=== PATIENT | male | born 2005 ===

== ENCOUNTER 2025-03-27 12:06 | Outpatient (AMB) | payer BC, SELFPAY ==
--- OUTSIDE RECORDS SUMMARY | 2020-11-04 17:58 | XMS_ITS | Encounter Summary ---
Author Organization [facility] Address [address] [place] [address] Care Team Providers Care Supply Chain Buyer Name Role Phone Efrem Zaldivar MD Primary Care Provider [phone] Efrem Zaldivar MD Unavailable [phone] Encounter Details Date Type Department Care Team (Late st Contact Info) Description 11/04/2020 5:58 PM EDT Hospital Encounter [facility] [address] [place] [place] [phone] Sharif Rubin MD [address] [place] [id number] Social History Tobacco Use Types Packs/Day Years Used Date Smoking Tobacco: Never Smokeless Tobacco: Never Alcohol Use Standard Drinks/Week Comments Yes 0 (1 standard drink = 0.6 oz pur e alcohol) Once every few months Social Connection and Isolation Panel [NHANES] A nswer Date Recorded In a typical week, how many times do you talk on the phone with family, friends, or neighbors? Patient declined 02/27/2025 Frequency of Social Gatherings with Friends and Family Not on file 02/27/2025 Attends Mandaeism Services Not on file 02/27 Active Member of Clubs or Organizations Not on f ile 02/27/2025 Attends Club or Organization Meetings Not on victor hugo e 02/27/2025 Marital Status Not on file 02/27/2025 AUDIT-C Answer Date Recorded Q1: How often do you have a drink containing alc ohol? Patient declined 02/27/2025 Q2: How many drinks containi ng alcohol do you have on a typical day when you are drinking? 7 to 9 02/27/2025 Frequency of Binge Drinking Not on file 02/02 PHQ-2 Answer Date Recorded PHQ-2 Total Score 1 02/22/2025 Hunger Vital Sign Answer Date Recorded Within the past 12 months, y ou worried that your food would run out before you got the money to buy more. Patient declined Within the past 12 months, t he food you bought just didn't last and you didn't have money to get more. Patient declined PRAPARE - Transportation Answer Date Re corded In the past 12 months, has l ack of transportation kept you from medical appointments or from getting medications? Patient declined 02/27/2025 In the past 12 months, has l ack of transportation kept you from meetings, work, or from getting things needed for daily living? Patient declined 02/27/2025 Housing Stability Vital Sign Answer Jimmie e Recorded In the last 12 months, was t here a time when you were not able to pay the mortgage or rent on time? Patient declined 02/28/20 25 In the past 12 months, how m any times have you moved where you were living? 0 02/27/2025 At any time in the past 12 m [facility], were you homeless or living in a halfway (including now)? Patient declined 02/27/2025 Education Answer Date Recorded What is the highest level of school you have completed or the highest degree you have received? 12th grade 02/27/2025 Sex and Gender Information Value Date Recorded Sex Assigned at Male 09/02/2022 3:29 AM EST Legal Sex Male 4:20 PM EDT Gender Identity Male 09/02/2022 3:29 AM EST Sexual Orientation Heterosexual (straight) 09/02 3:29 AM EST Occupation Industry Job Start Date Job End Date student Not on file Not on file Not on file COVID-19 Exposure Response Date Recorded In the last 10 days, have yo u been in contact with someone who was confirmed or suspected to have Coronavirus/COVID-19? No / Unsure 09/02/2022 1:55 AM EST documented as of this encounter Functional Status * Q1: How often do you have a drink containing alcohol? Answer Date of Assessment Author Patient declined 02/27/2025 2:53 PM EDTia Alonso * Q2: How many drinks containing alcohol do you have on a typical day when you are drinking? Answer Date of Assessment Author 7 to 9 02/22/2025 9:54 AM Jonathan Sherman * Over the past 2 weeks, how often have you been bothered by any of the following problems? Question Answer Date of Assessment Author Patient Health Questionnaire-2 Score 1 02/02 9:53 AM Nakia Sherman * Little interest or pleasure in doing things Answer Date of Assessment Author Several days 02/22/2025 9:53 AM Jonathan Sherman * Feeling down, depressed, or hopeless Answer Date of Assessment Author Not at all 02/22/2025 9:53 AM Jonathan Shermanweb * Question Answer Date of Assessment Author Patient Health Questionnaire-9 Score 1 02/02 9:53 AM EDNakia Alonso * Trouble falling or staying asleep, or sleeping too much Answer Date of Assessment Author Not at all 02/22/2025 9:53 AM EDJonathan Alonsoomeweb * Feeling tired or having little energy Answer Date of Assessment Author Not at all 02/22/2025 9:53 AM EDJonathan Alonsoomeweb * Poor appetite or overeating Answer Date of Assessment Author Not at all 02/22/2025 9:53 AM EDJonathan Alonsoomeweb * Feeling bad about yourself - or that you are a failure or have let yourself or your family down Answer Date of Assessment Author Not at all 02/22/2025 9:53 AM EDJonathan Alonsoomeweb * Trouble concentrating on things, such as reading the newspaper or watching television Answer Date of Assessment Author Not at all 02/22/2025 9:53 AM EDT Jonathan Chakraborty lcomeweb * Moving or speaking so slowly that other people could have noticed? Or the opposite - being so fidgety or restless that you have been moving around a lot more than usual. Answer Date of Assessment Author Not at all 02/22/2025 9:53 AM EDT [facility] * How difficult have these problems made it for you to do your work, take care of things at home, or get along with other people? Answer Date of Assessment Author Not difficult at all 02/22/2025 9:53 AM EDT Kia Hardinweb * Over the last 2 weeks, how often have you been bothered by any of the following problems? Question Answer Date of Assessment Author IQRA-7 Total Score 0 02/22/2025 9:53 AM EDT Brenda Chakrabortycomeweb * Feeling nervous, anxious, or on edge Answer Date of Assessment Author 0 02/22/2025 9:53 AM EDT [facility] * Not being able to stop or control worrying Answer Date of Assessment Author 0 02/22/2025 9:53 AM EDT [facility] * Worrying too much about different things Answer Date of Assessment Author 0 02/22/2025 9:53 AM EDT [facility] * Trouble relaxing Answer Date of Assessment Author 0 02/22/2025 9:53 AM EDT [facility] * Being so restless that it is hard to sit still Answer Date of Assessment Author 0 02/22/2025 9:53 AM EDT [facility] * Becoming easily annoyed or irritable Answer Date of Assessment Author 0 02/22/2025 9:53 AM EDT [facility] * Feeling afraid as if something awful might happen Answer Date of Assessment Author 0 02/22/2025 9:53 AM EDT [facility] * Question Answer Date of Assessment Author Thoughts that you would be better off or hurting yourself in some way Not at all 02/22/2025 9:53 AM EDT Rosie Tena MA documented as of this encounter Plan of Treatment Not on file documented as of this encounter Procedures Procedure Name Priority Date/Time Associated Diagnosis Comments XR FINGER (5TH) 2+ VIEWS-LEFT STAT 11/04/2020 6:11 PM EDT Finger pain, left documented in this encounter Results * XR Finger (5th) 2+ views-Left (11/04/2020 6:11 PM EDT) Anatomical Region Laterality Modality Hand Left Computed Radiogr aphy 11/04/2020 6:14 PM EDT Impressions 11/04/2020 6:16 PM EDT Impression: Angulated fracture of the fifth proximal phalanx. Narrative 11/04/2020 6:16 PM EDT Technique: 3 views obtained of the fifth digit Comparison: No relevant prior Findings: There is a comminuted fracture at the base of the fifth proximal phalanx with slight dorsal angulation of the distal fracture fragment. Fracture line closely approaches although is not definitively seen extending to the joint space. No dislocation. No focal soft tissue abnormality. Procedure Note Xochitl Ortiz MD - 11/04/2020 Technique: 3 views obtained of the fifth digit Comparison: No relevant prior Findings: There is a comminuted fracture at the base of the fifth proximal phalanxwith slight dorsal angulation of the distal fracture fragment. Fractureline closely approaches although is not definitively seen extending to thejoint space. No dislocation. No focal soft tissue abnormality. IMPRESSION: Impression: Angulated fracture of the fifth proximal phalanx. Trevor Zelaya PA-C IMTeto DIAGNOSTIC IMAGING ORDERABLES Final Result documented in this encounter Visit Diagnoses Not on filedocumented in this encounter Additional Health Concerns Infection Onset Date Last Indicated Resolved Time R/O Respiratory Disease 06/25/2024 06/25/202406/04 11:32 PM EST documented as of this encounter Care Teams Supply Chain Buyer Relationship Specialty Start Date End Date Efrem Zaldivar MD PCP - General Internal Medicine 07/25/18 10/02/24 Efrem Zaldivar MD [address] [place] [address] [address] [place] [address] PCP - [place] [employer] Attributed 09/01/20 07/03/22 documented as of this encounter
--- NOTE | 2025-03-27 12:11 | MHC.OFFWIV ---
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 Previously tested for std's which resulted negative, would like them repeated. Allergies No Known Allergies Allergy (Verified 03/27/25 12:15) Do you need a note to return to daycare/school/sports/work: Yes HPI HPI Comments History of Present Illness Details History - The patient is a 19-year-old male presenting with persistent pruritus localized to the tip of his penis. - The pruritus began approximately a month and a half ago, coinciding with the use of chemicals at work. - [place] and then this began. - The patient reports no associated rash, discharge, or lesions. - Previous interventions from his PCP include the use of topical steroid and antifungal creams, which provided minimal relief. - The patient has attempted to change soaps and laundry detergents without improvement. - No recent sexual partners or concerns about sexually transmitted infections were reported. - The patient engages in regular physical activity, including baseball, and wears compression underwear. - There is a history of exposure to strong adhesives without protective gloves, which may have contributed to the symptoms. - He denies penile discharge or pain, rashes in the groin, testicular pain, abd pain, pelvic pain, dysuria or hematuria. Physical Exam General: Cooperative, healthy appearing, comfortable, no acute distress and well developed Orientation: Patient oriented x3 Limitations: No limitations Mouth: normal, moist oral mucosa Neck: Normal visual inspection and Yes full ROM Respiratory: Normal respiratory effort and able to speak in complete sentences. Clear to auscultation bilaterally. No w/r/r noted. Cardiovascular: RRR, no m/r/g noted. Normal S1 and S2 Skin: No rashes or lesions noted. Patient was informed and verbally consented to the use of an ambient scribe for clinic note documentation during this visit Review of Systems Const All systems reviewed & are unremarkable except as noted in HPI and below Physical Exam Vital Signs: Last Vital Signs Temp 98.2 F 03/27/25 12:12 Pulse 65 03/27/25 12:12 BP 132/60 03/27/25 12:12 Pulse Ox 98 03/27/25 12:12 Oxygen Delivery Method Room Air 03/27/25 12:12 BMI result Body Mass Index 25.7 Assessment & Plan Assessment & Plan (1) Itching of penis: Code(s): L29.3 - Anogenital pruritus, unspecified Plan Most likely fungal vs yeast vs STI vs UA UA in the office neg Plan - Recommend a STD panel to rule out sexually transmitted infections- pt declined in the office. - Prescribe a higher dose of antifungal and steroid cream for symptomatic relief. - Suggest trial of oral antihistamines such as loratadine or cetirizine to address potential allergic reactions. - Advise changing to cotton underwear to reduce irritation from compression garments. - Recommend consultation with a sheet metal duct worker supervisor and reproduction production manager for further evaluation. Medications: New cetirizine 10 mg PO DAILY PRN 30 tabs 0RF allergy symptoms clotrimazole-betamethasone 1-0.05 % 1 appl topical BID 45 grams 1RF 4 weeks Coding Level of Care Code Est Pt Level 3 (78610) Diagnoses Itching of penis L29.3
[2025-03-27 12:12] VITALS: BP 132/60; PULSE 65; TEMP 36.8; O2SAT 98; BMI 25.7
--- OUTSIDE RECORDS SUMMARY | 2025-03-27 14:54 | XMS_ITS | Clinical Summary ---
Author Organization [facility] Address [address] [place] [address] Care Team Providers Care Venetian Blind Assembler Name Role Phone Efrem Zaldivar MD Unavailable [phone] Ashleigh Vang APRN Primary Care Prov ider Allergies No known active allergies Medications clotrimazole-be tamethasone (LOTRISONE) creamIndication s:Penile pruritus Apply topically 2 (two) times a day. 15 g Active Active Problems Problem Noted Date Diagnosed Date Seasonal allergic rhinitis due to pollen 015 Encounters Date Type Department Care Team Description 02/27/2025 3:15 PM EDT Office Visit [address] [phone] Juan Campbell PA Penile pruritus (Primary Dx) 02/27/2025 Travel 02/22/2025 10:00 AM EDT Office Visit [address] [phone] Ashleigh Vang APRN Penile pruritus (Primary Dx) 02/22/2025 Travel 02/17/2025 11:05 AM EDT Office Visit [facility] [address] [phone] Angelina Hughes APRN Kopas, Emily J, APRN Itching of penis (Primary Dx) 02/17/2025 Travel from Last 3 Months Immunizations Immunization Administration Dates Next Due Covid-19 MRNA Vaccine - Pfiz er 12+ (Purple Cap) 11/15/2020,10/25/2020 DTaP 09/11/2008 DTaP, Unspecified 01/03/2006, 5,2004,10/15 HPV Nonavalent 03/04/2017 Hep A, 2 Dose 01/03/2006 Hep A, Unspecified 10/13/2006,01/03/2006 Hep B, Unspecified 02/17/2005, 5,2004,08/17 Hepatitis B 02/17/2005,2004,2004 Hib 01/03/2006, 5,2004,10/15 Hib (PRP-OMP) 01/03/2006,2004,2004 Hib (PRP-T) 02/17/2005 IPV 02/17/2005,2004,2004 Influenza, Unspecified 04/26/2016,05/22/2015,05/2013 MMR 09/11/2008,09/17/2005 Meningococcal MCV4O (Menveo) 04/28/2023 Meningococcal MCV4P (Menactra) 03/01/2016 OPV 09/11/2008 Pneumococcal Conjugate 7-Valent 01/04/20 06,02/17/2005,2004,10/15 Pneumococcal Polysaccharide 23-Valent 01/03/2006 TD Preservative Free 08/16/2009 Tdap 03/01/2016 Varicella 09/11/2008,09/17/2005 Family History Medical History Relation Name Comments Hypertension Father No Known Problems Mother Relation Name Status Comments Father Mother Social History Tobacco Use Types Packs/Day Years [...] and Family Not on file 02/27/2025 Attends [employer] Not on file 02/27 Active Member [...] any time in the past 12 m [facility], were you homeless or living in a long-term (including now)? Patient declined 02/27/2025 Education Answer [...] file Not on file Not on file Last Filed Vital Signs Vital Sign Reading Time Taken Comments Blood Pressure 127/77 02/27/2025 2:58 PM EDT Pulse 60 02/27/2025 2:58 PM EDT Temperature 36.3 C (97.4 F) 02/27/2025 2:58 PM EDT Respiratory Rate 18 02/27/2025 2:58 PM EDT Oxygen Saturation 99% 02/27/2025 2:58 PM EDT Inhaled Oxygen Concentration - - Weight 76.3 kg (168 lb 3.2 oz) 02/27/2025 2:58 P M EDT Height 177.8 cm (5' 10 ) 02/27/2025 2:58 PM EDT Body Mass Index 24.13 02/27/2025 2:58 PM EDT Plan of Treatment Health Maintenance Due Date Last Done Comments Hepatitis C Virus Screening 2004 HIV Screening 2017 HPV Vaccines (2 - Male 2-dose series) 09/01/2017 03/04/2017 Influenza Vaccine 02/01/2025 04/26/2016, , 07/14/2012 COVID-19 Vaccine ( season) 2025 11/15/2020, 10/25/2020 Physical 02/15/2026 02/15/2023 DTaP/Tdap/Td Vaccines (7 - Td or Tdap) 03/01/2026 03/01/2016, 08/16/2009, 09/11/2008, Additional history exists Hepatitis B Vaccines Completed 02/17/2005, 02/17/2005, 2004, Additional history exists Hib Vaccines Discontinued 01/03/2006, 09/2005, 02/17/2005, Additional history exists Pneumococcal Vaccine: Pediatric (0-5 Years) and At-Risk Patients (6 to 49 Years) Aged Out 01/03/2006, 01/03/2006, 02/17/2005, Additional history exists No longer eligible based on patient's age to complete this topic Hepatitis A Vaccines Discontinued 10/13/2006, 01/03/2006, 01/03/2006 MMR Vaccines Discontinued 09/11/2008, 09/17/2005 Polio (IPV/OPV) Vaccines Discontinued 009, 02/17/2005, 2004, Additional history exists Varicella Vaccines Discontinued 09/11/2008, 09/17/2005 Influenza Vaccine Discontinued 04/26/2016, , 07/14/2012 Meningococcal Vaccine Discontinued 04/28/2023, 016 Insurance BLUE CROSS OUT OF [facility] BLUE CROSS OUT OF [facility] [id number] [place] [address] - PPO Care Teams Venetian Blind Assembler Relationship Specialty Start Date End Date Efrem Zaldivar MD [address] [facility] [address] [place] [id number] PCP - [place] [employer] Attributed 06/03/24 Ashleigh Vang APRN [address] [facility] [address] [place], [place] [id number] PCP - General Internal Medicine 02/22/25
--- OUTSIDE RECORDS SUMMARY | 2025-03-27 14:54 | XMS_ITS | Encounter Summary ---
Author Organization [facility] Address [address] [place] [address] Care Team Providers Care Skidder Name Role Phone fErem Zaldivar MD Unavailable [phone] Departed Provider, [facility] Generic Primary Care Provider Unavailable Ashleigh Vang APRN Primary Care Prov ider Encounter Details Date Type Department Care Team (Late st Contact Info) Description 11/13/2024 Scanned Document [facility] [address] [place] [phone] Provider, Generic Social History Tobacco Use Types Packs/Day Years Used Date Smoking Tobacco: Never Smokeless Tobacco: Never Alcohol Use Standard Drinks/Week Comments Never 0 (1 standard drink = 0.6 oz pur e alcohol) AUDIT-C Answer Date Recorded Frequency of Alcohol Consumption Never 03/04/2020 Average Number of Drinks Not on file 020 Frequency of Binge Drinking Not on file 07/2019 PHQ-2 Answer Date Recorded PHQ-2 Total Score 0 02/15/2023 Sex and Gender Information Value Date Recorded Sex Assigned at Male 09/02/2022 3:29 AM EST Legal Sex Male 4:20 PM EDT Gender Identity Male 09/02/2022 3:29 AM EST Sexual Orientation Heterosexual (straight) 09/02 3:29 AM EST documented as of this encounter Plan of Treatment Not on file documented as of this encounter Visit Diagnoses Not on filedocumented in this encounter Care Teams Skidder Relationship Specialty Start Date End Date Efrem Zaldivar MD [address] [facility] [address] [place] [address] PCP - [place] [employer] Attributed 06/03/24 Departed Provider, [facility] Generic PCP - General 10/03/24 02/21/25 Ashleigh Vang APRN [address] [facility] [address] [place] [address] PCP - General Internal Medicine 02/22/25 documented as of this encounter
--- OUTSIDE RECORDS SUMMARY | 2025-03-27 14:54 | XMS_ITS | Encounter Summary ---
Author Organization [facility] Address [address] [place] [address] Care Team Providers Care Lever Miller Name Role Phone Efrem Zaldivar MD Primary Care Provider [phone] MailEfrem michelle MD Unavailable [phone] Efrem Zaldivar MD Unavailable [phone] Efrem Zaldivar MD Unavailable [phone] Departed Provider, [facility] Generic Primary Care Provider Unavailable Ashleigh Vang APRN Primary Care Prov ider Encounter Details Date Type Department Care Team (Late st Contact Info) Description 03/06/2020 Scanned Document [facility] Provider, External, [address] [place] [address] Social History Tobacco Use Types Packs/Day Years Used Date Smoking Tobacco: Never Smokeless Tobacco: Never Alcohol Use Standard Drinks/Week Comments Never 0 (1 standard drink = 0.6 oz pur e alcohol) AUDIT-C Answer Date Recorded Frequency of Alcohol Consumption Never 03/04/2020 Average Number of Drinks Not on file 020 Frequency of Binge Drinking Not on file 07/2019 Sex and Gender Information Value Date Recorded [...] documented as of this encounter Care Teams Lever Miller Relationship Specialty Start Date End Date Efrem Zaldivar MD PCP - General Internal Medicine 07/25/18 10/02/24 Efrem Zaldivar MD [address] [address] PCP - [place] Commercial Attributed 09/01/20 07/03/22 Efrem Zaldivar MD [address] [address] PCP - [place] [employer] Attributed 06/03/23 03/03/24 Efrem Zaldivar MD [address] [address] PCP - [place] [employer] Attributed 06/03/24 Departed Provider, [facility] Generic PCP - General 10/03/24 02/21/25 Ashleigh Vang APRN [address] [place] [id number] PCP - General Internal Medicine 02/22/25 documented as of this encounter
--- OUTSIDE RECORDS SUMMARY | 2025-03-27 14:54 | XMS_ITS | Clinical Summary ---
Author Organization [facility] Address [address] [place] [address] Care Team Providers Care Machine Tool Dresser Name Role Phone Angel Beth MD Primary Care Provider Angel Beth MD Unavailable [phone] Medications Amoxicillin (AMOXIL) 500 MG tablet TAKE 1 TABLET 3 times daily 30 tablet 0 12/06/2017 Active Active Problems Problem Noted Date Diagnosed Date Sore throat 12/03/2017 Allergic rhinitis 05/22/2015 Overview (08/07/2023): Impression - 22May2015: most likely cause for headaches and cough. Suggested OTC nasal steroid but mom is hesitant. Could use oral antihistamine like Claritin or Zyrtec Immunizations Immunization Administration Dates Next Due DTaP 09/11/2008, 6,02/17/2005,12/16,2004 HIB (PRP-T) 02/17/2005 HPV9 (Gardasil 9) 03/04/2017 Hep A - 10/13/2006,01/03/2006 Hep B (adult) 02/17/2005,2004,2004 Hib (PRP-OMP) 01/03/2006,2004,2004 IPV 02/17/2005,2004,2004 Influenza (SEASONAL) - 04/26/2016,05/22/2015,05/2013 MMR 09/11/2008,09/17/2005 Meningococcal ACWY (Menactra) 03/01/2016 Meningococcal ACWY (Menveo) 04/28/2023 OPV, Trivalent (Admin Before 10/03/2015) 9 PCV-7 02/17/2005,2004,2004 PPV23 (Pneumovax) 01/03/2006 Tdap 03/01/2016 Varicella 09/11/2008,09/17/2005 Social History Tobacco Use Types Packs/Day Years Used Date Smoking Tobacco: Never Assessed Comments:Smoking Status:No c urrent tobacco use Sex and Gender Information Value Date Recorded Sex Assigned at Not on file Legal Sex Male 5:03 PM EDT Gender Identity Not on file Sexual Orientation Not on file Last Filed Vital Signs Vital Sign Reading Time Taken Comments Blood Pressure 100/58 12/03/2017 11:28 AM EDT LUE/Sitting LUE/Sitting Pulse 60 12/03/2017 11:28 AM EDT Temperature 36.9 C (98.5 F) 12/03/2017 11:28 AM EDT Respiratory Rate 14 12/03/2017 11:2 8 AM EDT Oxygen Saturation 98% 12/03/2017 11: 28 AM EDT Inhaled Oxygen Concentration - - Weight 60.4 kg (133 lb 4 oz) 12/03/2017 11:28 AM EDT Height 168.9 cm (5' 6.5 ) 12/03/2017 11 :28 AM EDT Body Mass Index 21.18 12/03/2017 11:28 AM EDT Plan of Treatment Health Maintenance Due Date Last Done Comments Hepatitis C Screening 2004 HPV Vaccine (2 - Male 2-dose series) 09/01/2017 03/04/2017 COVID-19 Vaccine ( season) 2025 Influenza (#1) 2025 04/26/2016, 05/04, 07/14/2012 DTaP/Tdap/Td (7 - Td or Tdap) 03/01/2026 03/01/2016, 09/11/2008, 01/03/2006, Additional history exists Zoster (Shingrix) (1 of 2) 2054 09/11/2008, Hep B Completed 02/17/2005, 10/02, 2004 Hib Completed 01/03/2006, 02/01, 2004, Additional history exists Pneumococcal Aged Out 01/03/2006, 02/01, 2004, Additional history exists No longer eligible based on patient's age to complete this topic Hep A Completed 10/13/2006, 01/03/2006 MMR Completed 09/11/2008, 09/17/2005 Polio (IPV/OPV) Completed 09/11/2008, 02/01, 2004, Additional history exists Varicella Completed 09/11/2008, 09/17/2005 Physical Discontinued 03/04/2017, 02/02, 02/25/2015, Additional history exists Meningococcal ACWY Completed 04/28/2023, 03/01/2016 Care Teams Machine Tool Dresser Relationship Specialty Start Date End Date Angel Beth MD [address] [place] [address] PCP - General 02/07/23 Angel Beth MD [address] [place] [address] PCP - Backup PCP Family Medicine 08/04/23
--- OUTSIDE RECORDS SUMMARY | 2025-03-27 14:54 | XMS_ITS | Clinical Summary ---
Author Organization [facility] Address [address] [place] [phone] Phone Care Team Providers Care Abstracter Name Role Phone Efrem Zaldivar MD Primary Care Provider [phone] Allergies No known active allergies Social History Tobacco Use Types Packs/Day Years Used Date Smoking Tobacco: Never Assessed Sex and Gender Information Value Date Recorded Sex Assigned at Male 09/06/2024 11:46 PM EST Legal Sex Male 8:38 PM EST Gender Identity Male 09/06/2024 11:46 PM EST Sexual Orientation Straight 09/06/2024 11 :46 PM EST Last Filed Vital Signs Vital Sign Reading Time Taken Comments Blood Pressure 125/64 09/07/2024 1:55 AM EST Pulse 95 09/07/2024 1:55 AM EST Temperature 37.7 C (99.8 F) 09/07/2024 1:55 AM EST Respiratory Rate 19 09/07/2024 1:55 AM EST Oxygen Saturation 98% 09/07/2024 1:55 AM EST Inhaled Oxygen Concentration - - Weight 73.9 kg (163 lb) 09/06/2024 8:47 PM EST Height 175.3 cm (5' 9 ) 09/06/2024 8:47 PM EST Body Mass Index 24.07 09/06/2024 8:47 PM EST Plan of Treatment Health Maintenance Due Date Last Done Comments HPV Vaccines (2 - Male 2-dose series) 09/01/2017 03/04/2017 Meningococcal B Vaccine (1 of 2 - Standard) 2020 Depression Screening 07/04/2024 Annual Well Child Visit (3-21 years old) 09/07/2024 02/15/2023, 03/03/2022, 02/26/2021, Additional history exists HIV Screening 09/07/2024 Hepatitis C Screening 09/07/2024 Social Influencers of Health Screening 09/07/2024 COVID-19 Vaccine (3 - season) 2025 11/15/2020, 10/25/2020 Influenza Vaccine (#1) 2025 6, 05/22/2015, 07/14/2012 DTaP,Tdap,and Td Vaccines (7 - Td or Tdap) 03/01/2026 03/01/2016, 08/16/2009, 09/11/2008, Additional history exists RSV Immunization Adult Patients (1 - 1-dose 75+ series) 2079 Hepatitis B Vaccines Completed 02/17/2005, 2004, 2004, Additional history exists HIB Vaccines Completed 01/03/2006, 02/01, 2004, Additional history exists Pneumococcal Vaccine: Pediatrics (0 to 5 Years) and At-Risk Patients (6 to 49 Years) Completed 01/03/2006, 01/03/2006, 02/17/2005, Additional history exists Hepatitis A Vaccines Completed 10/13/2006, 01/04/20 06 IPV Vaccines Completed 09/11/2008, 02/01, 2004, Additional history exists MMR Vaccines Completed 09/11/2008, 09/17/2005 Varicella Vaccines Completed 09/11/2008, 09/17/2005 Meningococcal ACWY Vaccine Completed 04/28/2023, RSV Immunization Patients Under 20 months Aged Out No longer eligible based on patient's age to complete this topic Insurance [facility] Care Teams Abstracter Relationship Specialty Start Date End Date Efrem Zaldivar MD [address] [place] [id number] PCP - General Family Medicine 09/06/24
--- OUTSIDE RECORDS SUMMARY | 2025-03-27 14:55 | XMS_ITS | Encounter Summary ---
Author Organization [facility] Address [address] [place] [address] Care Team Providers Care Finisher Screwdown Name Role Phone Efrem Zaldivar MD Primary Care Provider [phone] Efrem Zaldivar MD Unavailable [phone] Efrem Zaldivar MD Unavailable [phone] Efrem Zaldivar MD Unavailable [phone] Departed Provider, [facility] Generic Primary Care Provider Unavailable Ashleigh Vang APRN Primary Care Prov ider Encounter Details Date Type Department Care Team (Late st Contact Info) Description 03/16/2021 Scanned Document [facility] Primary Care [place] [address] [place] [address] [place] [phone] Efrem Zaldivar MD [address] [place] [address] Social History Tobacco Use Types Packs/Day Years [...] Orientation Heterosexual (straight) 09/02 3:29 AM EST COVID-19 Exposure Response Date Recorded In the last month, have you been in contact with someone who was confirmed or suspected to have Coronavirus / COVID-19? No / Unsure 02/26/2021 12:51 PM EDT documented as of this encounter Plan of Treatment Not on file documented as of this encounter Visit Diagnoses Not on filedocumented in this encounter Additional Health Concerns Infection Onset Date Last Indicated Resolved Time R/O Respiratory Disease 06/25/2024 06/25/202406/04 11:32 PM EST documented as of this encounter Care Teams Finisher Screwdown Relationship Specialty Start Date End Date Efrem Zaldivar MD PCP - General Internal Medicine 07/25/18 10/02/24 Efrem Zaldivar MD [address] [address] PCP - [employer] Attributed 09/01/20 07/03/22 Efrem Zaldivar MD [address] [address] PCP - [employer] Attributed 06/03/23 03/03/24 Efrem aZldivar MD [address] [address] PCP - [employer] Attributed 06/03/24 Departed Provider, [facility] Generic PCP - General 10/03/24 02/21/25 Ashleigh Vang APRN [address] [address] PCP - General Internal Medicine 02/22/25 documented as of this encounter
--- OUTSIDE RECORDS SUMMARY | 2025-03-27 14:55 | XMS_ITS | Encounter Summary ---
Author Organization [facility] Address [address] [place] [address] Care Team Providers Care Boiler Or Engine Operator Name Role Phone Efrem Zaldivar MD Primary Care Provider [phone] Efrem Zaldivar MD Unavailable [phone] Efrem Zaldivar MD Unavailable [phone] Departed Provider, [facility] Generic Primary Care Provider Unavailable Ashleigh Vang APRN Primary Care Prov ider Encounter Details Date Type Department Care Team (Late st Contact Info) Description 03/03/2023 Scanned Document [facility] Primary Care [address] [phone] Primary Care, Scan Social History Tobacco Use Types Packs/Day Years [...] documented as of this encounter Care Teams Boiler Or Engine Operator Relationship Specialty Start Date End Date Efrem Zaldivar MD PCP - General Internal Medicine 07/25/18 10/02/24 Efrem Zaldivar MD [address] [id number] PCP - [employer] Attributed 06/03/23 03/03/24 Efrem Zaldivar MD [address] [phone] PCP - [employer] Attributed 06/03/24 Departed Provider, [facility] Generic PCP - General 10/03/24 02/21/25 Ashleigh Vang APRN [address] [address] PCP - General Internal Medicine 02/22/25 documented as of this encounter
--- OUTSIDE RECORDS SUMMARY | 2025-03-27 14:55 | XMS_ITS | Encounter Summary ---
Author Organization [facility] Address [address] [place] [address] Care Team Providers Care Patrol Driver Name Role Phone Efrem Zaldivar MD Primary Care Provider [phone] Efrem Zaldivar MD Unavailable [phone] Efrem Zaldivar MD Unavailable [phone] Departed Provider, [facility] Generic Primary Care Provider Unavailable Ashleigh Vang APRN Primary Care Prov ider Encounter Details Date Type Department Care Team (Late st Contact Info) Description 03/03/2023 Scanned Document [facility] Primary Care [address] [phone] Primary Care, Scan Social History [...] documented as of this encounter Care Teams Patrol Driver Relationship Specialty Start Date End Date Efrem Zaldivar MD PCP - General Internal Medicine 07/25/18 10/02/24 Efrem Zaldivar MD [address] [phone] PCP - [employer] Attributed 06/03/23 03/03/24 Efrem aZldivar MD [address] [phone] PCP - [employer] Attributed 06/03/24 Departed Provider, [facility] Generic PCP - General 10/03/24 02/21/25 Ashleigh Vang APRN [address] [address] PCP - General Internal Medicine 02/22/25 documented as of this encounter
--- OUTSIDE RECORDS SUMMARY | 2025-03-27 14:55 | XMS_ITS | Encounter Summary ---
Author Organization [facility] Address [address] [place] [address] Care Team Providers Care Twisting Machine Operator Name Role Phone Efrem Zaldivar MD Primary Care Provider [phone] Efrem Zaldivar MD Unavailable [phone] Efrem Zaldivar MD Unavailable [phone] Efrem Zaldivar MD Unavailable [phone] Departed Provider, [facility] Generic Primary Care Provider Unavailable Ashleigh Vang APRN Primary Care Prov ider Encounter Details Date Type Department Care Team (Late st Contact Info) Description 02/26/2021 Scanned Document [facility] Primary Care [place] [address] [place] [address] [place] [phone] Efrem Zaldivar MD [address] [place] [address] Social History Tobacco Use Types Packs/Day [...] documented as of this encounter Care Teams Twisting Machine Operator Relationship Specialty Start Date End Date Efrem Zaldivar MD PCP - General Internal Medicine 07/25/18 10/02/24 Efrem Zaldivar MD [address] [address] PCP - [place] Attributed 09/01/20 07/03/22 Efrem Zaldivar MD [address] [address] PCP - [employer] Attributed 06/03/23 03/03/24 Efrem Zaldivar MD [address] [address] PCP - [place] [employer] Attributed 06/03/24 Departed Provider, [facility] Generic PCP - General 10/03/24 02/21/25 Ashleigh Vang APRN [address] [address] PCP - General Internal Medicine 02/22/25 documented as of this encounter
--- OUTSIDE RECORDS SUMMARY | 2025-03-27 14:55 | XMS_ITS ---
Author Name [facility] Organization Unknown Results Test Name/Text Value Interpretation Date Range Source Influenza virus B in upper resp spec by JORGE with probe detection Not Detected Normal 06/26/2024 [facility] 2019nCOV RNA Not Detected Normal 06/26/2024 [facility] Respiratory syncytial virus RNA in upper resp spec by JORGE with probe detection Not Detected Normal 06/26/2024 [facility] Comment Negative results do not preclude SARS-CoV-2, Influenza or RSV infection and should not be used as the sole basis for treatment or other patient management decisions. Normal 06/26/2024 [facility] Influenza virus A in upper resp spec by JORGE with probe detection Not Detected Normal 06/26/2024 [facility] History of Medication Use Medication Directions Dispensed Refills Start Date End Date Stat us clotrimazole (LOTRIMIN) 1 % cream Apply topically 2 (two) times a day. 02/17/2025 active predniSONE (DELTASONE) 50 MG tablet Take 1 tablet (50 mg total) by mouth daily. With food. 08/19/2024 active methylPREDNISolone (MEDROL DOSEPAK) 4 MG tablet follow package directions 02/22/2024 active amoxicillin (AMOXIL) 500 MG capsule Take 1 capsule (500 mg total) by mouth 2 (two) times a day. 02/14/2024 active podofilox (CONDYLOX) 0.5 % external solution Apply topically 2 (two) times a day. Use for 3 days, hold for 4 days. Repeat as needed up to 4 times. 07/25/2018 active Allergies Allergen Reaction Severity Comment Documented Date Source Statu s NO KNOWN DRUG ALLERGIES ENS_ORTH OCT Problems Problem Status Onset Date Problem Type Date of Resolution Source Itching of penis active EncounterDiagnosisAct CCT Encounter for postoperative care active 2018-02-24 ProblemAct [facility] Elbow pain, right active 2018-02-24 ProblemAct ENS_ORTHOCT Closed nondisplaced fracture of shaft of left clavicle with routine healing, subsequent encounter active 2016-08-20 ProblemAct ENS_ORTHOCT Other closed displaced fracture of distal end of right humerus with routine healing, subsequent encounter active 2018-02-24 ProblemAct ENS_ORTHOCT Immunizations Vaccine Date Source Lot Number Status Covid-19 MRNA Vaccine - Pfiz er 12+ (Purple Cap) 11/15/2020 [facility] [id number] completed Covid-19 MRNA Vaccine - Pfiz er 12+ (Purple Cap) 10/25/2020 [facility] [id number] completed TD Preservative Free 08/16/2009 [facility] comp leted DTaP, Unspecified 01/03/2006 [facility] complet ed Hep A, 2 Dose 01/03/2006 [facility] completed Hib 01/03/2006 [facility] completed Pneumococcal Conjugate 7-Valent 01/03/2006 [facility] completed MMR 09/17/2005 [facility] completed Varicella 09/17/2005 [facility] completed DTaP, Unspecified 02/17/2005 [facility] complet ed Hep B, Unspecified 02/17/2005 [facility] comple helen Hib 02/17/2005 [facility] completed IPV 02/17/2005 [facility] completed Pneumococcal Conjugate 7-Valent 02/17/2005 CCT completed DTaP, Unspecified 2004 [facility] complet ed Hep B, Unspecified 2004 [facility] comple helen Hib 2004 [facility] completed IPV 2004 CCT completed Pneumococcal Conjugate 7-Valent 2004 CCT completed DTaP, Unspecified 2004 [facility] complet ed Hep B, Unspecified 2004 [facility] comple helen Hib 2004 CCT completed IPV 2004 [facility] completed Pneumococcal Conjugate 7-Valent 2004 CCT completed Hep B, Unspecified 2004 CCT comple helne Encounters Encounter Type Encounter Reason Primary Diagnosis Location Date Ambulatory Allergic rhinitis due to pollen Allergic rhinitis due to pollen [facility] 02/27/2025 Ambulatory Establish Care Establish Care [facility] [email or web address] 02/22/2025 Ambulatory Penile Problem Penile Problem [facility] [email or web address] 02/17/2025 Ambulatory [facility] 11/13/2024 Ambulatory Low back pain, unspecified Low back pain, unspecified [facility] 11/13/2024 Ambulatory Otitis media, unspecified, right ear Otitis media, unspecified, right ear [facility] 08/19/2024 Ambulatory Other general symptoms and signs Other general symptoms and signs [facility] 06/25/2024 Ambulatory Acute pharyngitis, unspecified Acute pharyngitis, unspecified [facility] 02/22/2024 Ambulatory Acute pharyngitis, unspecified Acute pharyngitis, unspecified [facility] 02/14/2024 Ambulatory Encounter for general adult medical examination without abnormal findings Encounter for general adult medical examination without abnormal findings [facility] 02/15/2023 Emergency Acute pharyngiti s, unspecified [facility] 09/02/2022 Ambulatory Encounter for examination for adolescent development [facility] 03/03/2022 Ambulatory [facility] 08/28/2021 Ambulatory Concussion witho ut loss of consciousness, initial encounter [facility] 04/07/2021 Emergency Concussion witho ut loss of consciousness, initial encounter [facility] 04/03/2021 Care Team Organization Name Specialty Phone Email Start Date End Da te [facility] ENRI[facility] WAGNER Primary Care 02/22/2025 [facility] [employer] 03/22/2025 [facility] 11/14/2024 [facility] DEPARTED PROVIDER Primary Care 11/13/2024 [facility] DEPARTED PROVIDER Primary Care 11/13/2024 [facility] 04/05/2023 [facility] SHARON DIAZ Primary Care 03/03/2022 [facility] Kirit Ortiz Primary Care 08/29/2021 02/20/2024 [facility] 04/03/2021 03/03/2022 [facility] Christy Cooney Primary Care 03/17/2021 02/20/2024
--- OUTSIDE RECORDS SUMMARY | 2025-03-27 14:55 | XMS_ITS | Clinical Summary ---
Author Organization [facility] [address] [facility] Address [address] [place] [address] Phone Care Team Providers Care Concrete Placement Equipment Operator Name Role Phone Obtain, Unable To Primary Care Provider Unavaila ble Social History Tobacco Use Types Packs/Day Years Used Date Smoking Tobacco: Never Assessed Sex and Gender Information Value Date Recorded Sex Assigned at Not on file Legal Sex Male 7:37 AM EST Gender Identity Not on file Sexual Orientation Not on file Plan of Treatment Health Maintenance Due Date Last Done Comments MMR Vaccines (1 of 1 - Stand rosa series) 2005 DTaP/TDaP Vaccines (1 - Tdap) 2011 08/16/2009 HIV screening 2017 Varicella Vaccines (1 of 2 - 13+ 2-dose series) 2017 HPV vaccine series (1 - Male 3-dose series) 2019 Meningococcal B Vaccine (1 o f 2 - Standard) 2020 Hepatitis C screening 2022 Hepatitis B vaccine series ( 1 of 3 - 19+ 3-dose series) 2023 Tetanus adult (Td q 10,TDAP once) 2024 010 Influenza Vaccine Pediatric (#1) 2025 Covid-19 vaccine series ( - season) 2025 RSV Immunization (1 - 1-dose 75+ series) 2079 HIB Vaccines Aged Out No longer eligi ble based on patient's age to complete this topic Hepatitis A Vaccines Aged Out No long er eligible based on patient's age to complete this topic IPV Vaccines Aged Out No longer eligi ble based on patient's age to complete this topic Meningococcal Vaccine Aged Out No isi wesley eligible based on patient's age to complete this topic Pneumococcal Vaccine (2 - 49 years) Aged Out No longer eligible b ased on patient's age to complete this topic Rotavirus Vaccines Aged Out No longer eligible based on patient's age to complete this topic Insurance BS BCBS BS Care Teams Concrete Placement Equipment Operator Relationship Specialty Start Date End Date Obtain, Unable To PCP - General 08/30/20
--- OUTSIDE RECORDS SUMMARY | 2025-03-27 14:55 | XMS_ITS | Encounter Summary ---
Author Organization [facility] Address [address] [place] [address] Care Team Providers Care Home Therapy Teacher Name Role Phone Efrem Zaldivar MD Primary Care Provider [phone] Efrem Zaldivar MD Unavailable [phone] Efrem Zaldivar MD Unavailable [phone] Efrem Zaldivar MD Unavailable [phone] Departed Provider, [facility] Generic Primary Care Provider Unavailable Ashleigh Vang APRN Primary Care Prov ider Encounter Details Date Type Department Care Team (Late st Contact Info) Description 03/03/2022 Scanned Document [facility] Primary Care [address] [phone] Primary Care, Scan Social History [...] suspected to have Coronavirus/COVID-19? No / Unsure 03/03/2022 10:47 AM EDT documented as of this encounter Plan of Treatment Not on file documented as of this encounter Visit Diagnoses Not on filedocumented in this encounter Additional Health Concerns Infection Onset Date Last Indicated Resolved Time R/O Respiratory Disease 06/25/2024 06/25/202406/04 11:32 PM EST documented as of this encounter Care Teams Home Therapy Teacher Relationship Specialty Start Date End Date Efrem Zaldivar MD PCP - General Internal Medicine 07/25/18 10/02/24 Efrem Zaldivar MD [address] [address] PCP - [employer] Attributed 09/01/20 07/03/22 Efrem Zaldivar MD [address] [address] PCP - [employer] Attributed 06/03/23 03/03/24 Efrem Zaldivar MD [address] [address] PCP - [employer] Attributed 06/03/24 Departed Provider, [facility] Generic PCP - General 10/03/24 02/21/25 Ashleigh Vang APRN [address] [address] PCP - General Internal Medicine 02/22/25 documented as of this encounter
== END 2025-03-27 13:02 | disposition home or self-care (01) ==
PROVIDERS: Visit Provider Physician Assistant Medical
DX: Z13.9 Encounter for screening, unspecified (principal); L29.3 Anogenital pruritus, unspecified

== ENCOUNTER → 2025-03-27 12:06 | Outpatient (BNVA) | payer BC, SELFPAY | PROVIDERS: Visit Provider Physician Assistant Medical | DX: L29.3 Anogenital pruritus, unspecified (principal) | CPT/HCPCS: 81003 ==